=== PATIENT | female | born 1985 ===

== ENCOUNTER → 2021-04-15 | Outpatient (CLI) | payer OTHER | END | disposition home or self-care (01) | LOC: PRENATAL 10:00 | PROVIDERS: ATTEND Obstetrics & Gynecology Maternal & Fetal Medicine | DX: Z36.89 Encounter for other specified antenatal screening (principal); O36.80X1 Pregnancy with inconclusive fetal viability, fetus 1; O09.521 Supervision of elderly multigravida, first trimester; Z3A.13 13 weeks gestation of pregnancy ==

== ENCOUNTER 2021-08-14 13:45 | Outpatient (CLI) | payer OTHER | END 2021-08-14 15:00 | disposition home or self-care (01) | LOC: PRENATAL 13:45 | PROVIDERS: ATTEND Obstetrics & Gynecology Maternal & Fetal Medicine | DX: O35.0XX1 Maternal care for (suspected) central nervous system malformation in fetus, fetus 1 (principal); O35.3XX1 Maternal care for (suspected) damage to fetus from viral disease in mother, fetus 1; O98.513 Other viral diseases complicating pregnancy, third trimester; O09.523 Supervision of elderly multigravida, third trimester; Z36.89 Encounter for other specified antenatal screening; Z3A.33 33 weeks gestation of pregnancy ==

== ENCOUNTER 2022-04-05 00:01 | Emergency (ER) | payer OTHER ==
[~2022-04-05] VITALS: Ht 152.4 cm; Wt 73.5 kg
[2022-04-05] MEDS ORDERED: ACETAMINOPHEN650 M2 PO (06:04)
== END 2022-04-05 06:28 | disposition home or self-care (01) ==
LOC: ER 00:01
DX: O20.8 Other hemorrhage in early pregnancy (principal); Z3A.12 12 weeks gestation of pregnancy

== ENCOUNTER 2022-04-09 09:09 | Day surgery (SDC) | payer OTHER ==
[~2022-04-09] VITALS: Ht 154.9 cm; Wt 72.6 kg
[~2022-04-09 09:09] MED LIST: ACETAMINOPHEN650 M2 PO
== END 2022-04-09 16:15 | disposition home or self-care (01) ==
LOC: CIR.AMB 09:09
PROVIDERS: ATTEND Obstetrics & Gynecology
DX: O02.1 Missed abortion (principal); Z20.822 Contact with and (suspected) exposure to COVID-19; J45.909 Unspecified asthma, uncomplicated